=== PATIENT | female | born 1985 | race Caucasian/White ===

== ENCOUNTER 2017-02-27 04:03 | Emergency (ER) | payer OTHER ==
[2017-02-27 05:05] VITALS: BP 109/67
== END 2017-02-27 05:04 | disposition home or self-care (01) ==
LOC: ED 04:03
DX: M71.562 Other bursitis, not elsewhere classified, left knee (principal)

== ENCOUNTER 2019-08-23 01:23 | Emergency (ER) | payer OTHER ==
[~2019-08-23] VITALS: Ht 157.5 cm; Wt 62.7 kg
[2019-08-23 01:26] VITALS: Ht 157.5 cm; Wt 62.7 kg
[2019-08-23 02:05] VITALS: BP 99/79
== END 2019-08-23 02:26 | disposition home or self-care (01) ==
LOC: ED 01:23
DX: S89.92XA Unspecified injury of left lower leg, initial encounter (principal); W22.8XXA Striking against or struck by other objects, initial encounter; Y93.89 Activity, other specified; Y92.89 Other specified places as the place of occurrence of the external cause; Y99.8 Other external cause status